=== PATIENT | male | born 2000 | race African-American/Black ===

== ENCOUNTER 2025-01-03 13:43 | Emergency (ER) | payer OTHER ==
--- NOTE | 2025-01-03 14:07 | ED ---
General Adult HPI - General Stated complaint: dental abscess Time Seen by Provider: 01/03/25 13:58 Source: patient, RN notes reviewed Mode of arrival: ambulatory Limitations: no limitations - History of Present Illness Initial comments: This is a 24-year-old male presenting for mass under tongue. Patient endorses mass becoming larger over the past several days noting a clear fluid coming from it recently and endorsing concern for infection. - Related Data Allergies Allergy/AdvReac Type Severity Reaction Status Date / Time No Known Allergies Allergy Verified 01/03/25 14:09 Review of Systems ROS Statement: Those systems with pertinent positive or pertinent negative responses have been documented in the HPI. ROS Other: All systems not noted in ROS Statement are negative. General Exam - General Exam Comments Initial Comments: Visual Physical Exam Vital signs reviewed General: Well-appearing, nontoxic, no acute distress. Head: Normocephalic, atraumatic Eyes: PERRLA, EOMI ENT: Airway patent Chest: Nonlabored breathing Skin: No visual rash, normal skin tone Neuro: Alert and oriented 3 Musculoskeletal: No gross abnormalities Course Vital Signs 01/03/25 14:07 Temperature 98.0 F Pulse Rate 61 Respiratory 22 Rate Blood Pressure 136/83 O2 Sat by Pulse 96 Oximetry Medical Decision Making - Medical Decision Making I completed the quick note portion of this chart signed ALEX Lujan Disposition Clinical Impression: Mucocele of mouth Disposition: HOME SELF-CARE Condition: Good Instructions (If sedation given, give patient instructions): Blister (ED) Additional Instructions: Swish with warm salt water and apply honey to help prevent recurrence. Follow- up with PCP/ENT if mucocele should return Is patient prescribed a controlled substance at d/c from ED?: No Referrals: Chris Hernandez DO [Primary Care Provider] - 1-2 days Maria Elena Brizuela MD [Medical Doctor] - 1-2 days Time of Disposition: 16:55
[2025-01-03] MEDS: LIDOCAINE 1% INJ 10MG/ML (20 ML MDV) SQ ONE (16:25)
[2025-01-03 17:37] VITALS: BP 136/8; PULSE 60; RESP 20; TEMP 98
== END 2025-01-03 17:38 | disposition home or self-care (01) ==
LOC: EC 13:43
DX: K13.79 Other lesions of oral mucosa (principal)
CPT/HCPCS: 99282; J2003